=== PATIENT | male | born 1960 | race Caucasian/White ===

== ENCOUNTER 2016-11-30 15:23 | Day surgery (SDC) | payer BC ==
[~2016-11-30] VITALS: Ht 172.7 cm; Wt 72.3 kg
[2016-11-30 17:02] VITALS: Ht 172.7 cm; Wt 72.3 kg
[2016-11-30] MEDS ORDERED: NO MEDS. (17:12)
[2016-11-30 17:32] VITALS: BP 122/75; PULSE 98; RESP 16
[2016-11-30] MEDS ORDERED: MIDAZOLAM 1 MG/ML 2 ML INJ ONE ×4 (18:35→18:36)
[2016-11-30] MEDS ORDERED: FENTAnyl 50 MCG/ML VIAL ONE (18:36)
[2016-11-30 18:55] VITALS: BP 113/73; PULSE 86; RESP 16
--- NOTE | 2016-12-01 00:13 | GILP ---
DATE OF PROCEDURE: NAME OF PROCEDURES: 1. Esophagogastroduodenoscopy and biopsy. 2. Colonoscopy and biopsy. SURGEON: Jaskaran Valentine M.D. PREOPERATIVE DIAGNOSES: 1. Chronic heartburn. 2. Rectal bleeding. POSTOPERATIVE DIAGNOSES: 1. Gastroesophageal reflux disease. 2. Gastritis with erosions. 3. Gastric mucosal biopsies were taken for Helicobacter pylori test. 4. Colonoscopy all the way to the cecum. 5. Transverse colon polyp was removed using the biopsy forceps. 6. Internal hemorrhoids. INDICATION FOR THE PROCEDURES: Mr. Miguel Jay is a 56-year-old male patient who had chronic he artburn, not responding to therapy. He also had rectal bleeding. The patient was scheduled for end oscopy and colonoscopy for further evaluation. The procedures and possible complications were well explained to the patient. The patient understoo d and consented to the procedures. DESCRIPTION OF PROCEDURE: Under the influence of fentanyl and Versed, the gastroscope was carefully introduced into the esophagus and under direct vision, it was advanced into the stomach and through the pylorus to the duodenal bulb and descending duodenum. FINDINGS: ESOPHAGUS: The patient had gastroesophageal reflux disease. STOMACH: He had gastritis with erosions. Gastric mucosal biopsies were taken for H. pylori test. DUODENUM: Normal. The colonoscope was carefully introduced in the rectum and under direct vision, it was advanced all the way to the cecum. FINDINGS: The patient had a transverse colon polyp, and this was removed using the biopsy forceps. He was noted to have internal hemorrhoids. He tolerated the procedures very well, and there were no complications from the procedures. At the end of the procedures, he was awake with stable vital signs, and he was discharged home to the care of his family. IMPRESSION: 1. Gastroesophageal reflux disease. 2. Gastritis with erosions. 3. Gastric mucosal biopsies were taken for Helicobacter pylori test. 4. Colonoscopy all the way to the cecum. 5. Transverse colon polyp was removed using the biopsy forceps. 6. Internal hemorrhoids. PLAN: 1. Nexium 24 hours p.o. q.a.m. 2. Anusol-HC 2.5% cream at bedtime p.r.n. 3. Await histopathology reports. 4. Next screening colonoscopy in 10 years. Dictated By: JASKARAN PALUMBO/SAUMYA Conf#: [id number] [facility]#: [id number]
== END 2016-11-30 18:50 | disposition home or self-care (01) ==
LOC: GIL 15:23
PROVIDERS: ATTEND Internal Medicine Gastroenterology
DX: K21.9 Gastro-esophageal reflux disease without esophagitis (principal); K29.60 Other gastritis without bleeding; D12.3 Benign neoplasm of transverse colon; K64.8 Other hemorrhoids
CPT/HCPCS: 43239; 45380; 87081; 88305; J2250; J3010; Z7610

== ENCOUNTER → 2018-01-24 11:28 | Day surgery (SDC) | END | disposition home or self-care (01) ==